=== PATIENT | female | born 1975 | race Caucasian/White ===

== ENCOUNTER 2022-09-17 11:38 | Emergency (ER) | payer BC, SELFPAY ==
[2022-09-17 11:51] VITALS: BP 136/86; PULSE 80; TEMP 36.7; O2SAT 100; BMI 23.1
[2022-09-17 12:34] VITALS: BP 114/78; PULSE 75; RESP 14; O2SAT 99
--- NOTE | 2022-09-17 14:23 | ED_ITS ---
HPI - General Adult General Date Seen: 09/17/22 Chief complaint: Neck Injury/Pain Stated complaint: neck pain Time Seen by Provider: 09/17/22 12:02 Source: patient Mode of arrival: ambulatory Limitations: no limitations History of Present Illness HPI narrative: Patient is a 47-year-old woman who slept wrong about 6 days ago woke up with pain in the right side of her neck. This radiates up into the right side of her scalp and down into the right shoulder. She has gone to the chiropractor a couple of times, he has done manipulation and gave her a soft collar to wear but symptoms have not improved. She went to see him today again but he recommended that she come to the ER instead. She does not have any further radiating pain. Has not had any neurologic symptoms. She says ibuprofen and Tylenol, heat and ice have not been helping. Rotation both to the right and left are limited secondary to pain and spasm. She is finding it difficult to sleep because laying down is uncomfortable. She had to leave work yesterday due to symptoms as well. No trauma. No fevers, night sweats, unexpected weight loss. General health is good. Related Data Previous Rx's Medication Instructions Recorded diazepam 10 mg tablet (Valium) 10 mg PO QHS PRN #7 tabs 09/17/22 Allergies Allergy/AdvReac Type Severity Reaction Status Date / Time doxycycline Allergy Unknown Verified 09/17/22 11:54 Review of Systems Status of ROS: Reports: 10 or more systems reviewed and unremarkable except as noted in History and below [facility] Social History Smoking Status: Heavy tobacco smoker What tobacco products do you use: cigarettes Smoking packs per day: 0.5 Smoking cigarettes per day: 10.0 Do you use any of these nicotine containing products: None Second hand tobacco smoke exposure: No How often do you have a drink containing alcohol: monthly or less AUDIT-C Alcohol total score: 1 Non-prescribed substance use: denies use Exam Narrative: Exam Narrative: Vital signs as noted above. In general, an alert, nontoxic woman, wearing a soft collar. Head: Normocephalic, atraumatic. Eyes: Pupils are equal reactive. Extraocular movements are full. Conjunctivae are normal. ENT: Mucous membranes are moist. Throat is normal. Neck: Supple without lymphadenopathy. No stridor or masses. She has palpable muscle spasm in the paracervical muscles on the right. She has some flexion extension but essentially no rotation to the right or left secondary to pain. She has some tenderness in the rhomboid and trapezius muscles on the right, less so than in the cervical musculature. Heart: Regular rate and rhythm. No murmur or rub. Lungs: Clear bilaterally. No increased work of breathing, crackles or wheezes. Extremities: Well perfused. No edema. No calf tenderness. Pulses intact. Neurologic: Patient is alert and oriented to person and place. Speech is fluent. Face is symmetric. Strength is 5 of 5 in bilateral upper extremities, sensation is intact to light touch. Affect: Normal. Skin: Warm and dry. Well perfused. Const: Vital Signs, click to edit/add: Vital Signs - 24 hr 09/17/22 11:51 09/17/22 12:34 Temperature 98.0 F Pulse Rate [Pulse Oximeter] 80 75 Respiratory Rate 14 Blood Pressure [Ri ght Upper Arm] 136/86 114/78 Pulse Oximetry 100 99 Oxygen Delivery Me thod Room Air Room Air Documenting provider has reviewed patient's vital signs: yes Course Course Hospital Course: Exam and presentation is consistent with torticollis. She does not have any worrisome neurologic symptoms or red flags that suggest she needs imaging today. I do think that ibuprofen, Tylenol, ice and heat are reasonable to continue, although I have suggested that she take ibuprofen and Tylenol together rather than sporadically. I have recommended against the soft collar, I think that limited movement of her neck is actually probably prolonging her symptoms rather than improving them. I am giving her prescription for small number of Valium to take at night. Discussed that while there may be an underlying issue in her neck such as a disc herniation, I do not see anything to suggest that she needs imaging today. If symptoms are not improving in a timely manner, I would recommend primary care follow-up in imaging could be considered at that time. For now, I think symptoms are more likely to be simple muscle spasm. If she develops new neurologic deficits, return for more urgent evaluation Vital Signs Vital signs: Initial Vital Signs Temperature 98.0 F 09/17/22 11:51 Temperature Source Temporal Artery Scan 09/17/22 11:51 Pulse Rate 80 09/17/22 11:51 Blood Pressure 136/86 09/17/22 11:51 Blood Pressure Mean 102 09/17/22 11:51 Blood Pressure Position Sitting 09/17/22 11:51 Pulse Oximetry 100 09/17/22 11:51 Oxygen Delivery Method 09/17/22 11:51 Vital Signs Temperature 98.0 F 09/17/22 11:51 Pulse Rate 80 09/17/22 11:51 Blood Pressure 136/86 09/17/22 11:51 Pulse Oximetry 100 09/17/22 11:51 Oxygen Delivery Method 09/17/22 11:51 Temperature 98.0 F 09/17/22 11:51 Pulse Rate 75 09/17/22 12:34 Respiratory Rate 14 09/17/22 12:34 Blood Pressure 114/78 09/17/22 12:34 Pulse Oximetry 99 09/17/22 12:34 Oxygen Delivery Method 09/17/22 12:34 Discharge Plan Discharge Clinical Impression: Torticollis Patient Disposition: Home, Self-Care Condition: Stable Instructions: Spasmodic Torticollis (ED) Additional Instructions: Ibuprofen 400 mg plus Tylenol 1000 mg 3 times daily with food. Ice and/or heat. Valium at bedtime. Follow-up with primary care if not improving gradually over the next few days, consider imaging in the form of MRI. If you have new symptoms such as fever, weakness, numbness, or other neurologic changes, return to the emergency department. Prescriptions: New diazepam [Valium] 10 mg tablet 10 mg PO QHS PRNQty: 7 0RF Follow Up/Referrals: Sunil Sprague MD [Primary Care Provider] - Stand Alone Forms: [employer] Info Instructions
== END 2022-09-17 12:37 | disposition home or self-care (01) ==
LOC: ED 12:32
PROVIDERS: Emergency Provider Emergency Medicine; PCP Family Medicine
DX: M43.6 Torticollis (principal)
CPT/HCPCS: 99283; 99284

== ENCOUNTER 2022-09-17 23:30 | Emergency (ER) | payer BC, SELFPAY ==
[2022-09-17 23:35] VITALS: BP 136/90; PULSE 91; RESP 16; TEMP 36.8; O2SAT 100; BMI 23.1
[2022-09-18] MEDS: BUPIVACAINE 0.25% 30 ML INJECTION (00:21)
--- NOTE | 2022-09-18 14:50 | ED_ITS ---
HPI - Neck Pain/Injury General Chief Complaint: Neck Injury/Pain Stated Complaint: Severe neck pain Time Seen by Provider: 09/17/22 23:46 History of Present Illness HPI Narrative: 47-year-old woman presenting to the emergency department after being seen earlier today with complaint of severe right decided and regional neck pain. Radiates past shoulder and then intensely into the back of the head. Any movement hurts her neck. Much worse just to lie down and certainly to transition from lying to sitting. No particular injury. This has been going on for 6 days I believe upon waking. Has been treated by a chiropractor but was recommended to be seen in the emergency department after most recent presentation. Was discharged with diagnosis of torticollis, diazepam, ibuprofen and acetaminophen. Has not been able to rest or get control of pain. Had tried a soft collar as prescribed by the chiropractor. Related Data Home Medications Medication Instructions Recorded Confirmed Advil 09/17/22 Previous Rx's Medication Instructions Recorded diazepam 10 mg tablet (Valium) 10 mg PO QHS PRN #7 tabs 09/17/22 Allergies Allergy/AdvReac Type Severity Reaction Status Date / Time doxycycline Allergy Unknown Verified 09/17/22 23:41 Review of Systems Status of ROS: Reports: 6 or more systems reviewed and unremarkable except as noted in History and below PFSH PFS Social History Smoking Status: Current every day smoker What tobacco products do you use: cigarettes Do you use any of these nicotine containing products: None How often do you have a drink containing alcohol: monthly or less AUDIT-C Alcohol total score: 1 Non-prescribed substance use: denies use Exam Narrative: Exam Narrative: Pleasant. Clearly uncomfortable. Does not arrive in a soft collar. She is seated stiffly on the bed staring straight ahead. Able to move all extremities without notable difficulty. She is breathing easily. Skin is warm and dry without rash. Cranial nerves 2-12 to be intact. Has good strength in the upper extremities. No pain to midline palpation of the neck. Visible and palpable spasm of the muscle at the base of the right paracervical and then into the trapezial musculature. Very tense generally and sore to palpation this area. Rotation of the shoulder does not elicit particularly discomfort. Pain exacerbated particularly with attempted rotation of the neck. Const: Vital Signs, click to edit/add: Vital Signs - 24 hr 09/17/22 23:35 Temperature 98.2 F Pulse Rate [Left P ulse Oximeter] 91 Respiratory Rate 16 Blood Pressure [Ri ght Upper Arm] 136/90 H Pulse Oximetry 100 Oxygen Delivery Me thod Room Air Documenting provider has reviewed patient's vital signs: yes Course Vital Signs Vital signs: Initial Vital Signs Temperature 98.2 F 09/17/22 23:35 Temperature Source Temporal Artery Scan 09/17/22 23:35 Pulse Rate 91 09/17/22 23:35 Respiratory Rate 16 09/17/22 23:35 Blood Pressure 136/90 H 09/17/22 23:35 Blood Pressure Mean 105 09/17/22 23:35 Blood Pressure Position Sitting 09/17/22 23:35 Pulse Oximetry 100 09/17/22 23:35 Oxygen Delivery Method 09/17/22 23:35 Vital Signs Temperature 98.2 F 09/17/22 23:35 Pulse Rate 91 09/17/22 23:35 Respiratory Rate 16 09/17/22 23:35 Blood Pressure 136/90 H 09/17/22 23:35 Pulse Oximetry 100 09/17/22 23:35 Oxygen Delivery Method 09/17/22 23:35 Temperature 98.2 F 09/17/22 23:35 Pulse Rate 91 09/17/22 23:35 Respiratory Rate 16 09/17/22 23:35 Blood Pressure 136/90 H 09/17/22 23:35 Pulse Oximetry 100 09/17/22 23:35 Oxygen Delivery Method 09/17/22 23:35 MDM - Neck Pain/Injury MDM Narrative Medical decision making narrative: I would like to try to offer her some immediate relief. We discussed potential benefit of anesthetic in the muscles in the area. Informed consent obtained and decided to proceed with Marcaine injections. Prior to injection cleansed with alcohol and injected 1.5 mL 0.25% bupivacaine fanned in 4 points from mid right- sided paracervical musculature down into the trapezius. Upon reassessment she did develop a nearly 1 cm swelling superior to the uppermost injection. I do not recall it being present prior to the injection. Would presume small h ematoma. After injections though pain was markedly improved throughout the neck though still with posterior headache. She will still need NSAIDs and other treatment. Had improved transition to standing. Discharge Plan Discharge Clinical Impression: Acute torticollis Patient Disposition: Home w/ Parent or Adult Condition: Improved Additional Instructions: I think wearing your soft collar here and there would be okay particularly if it seems to help you relax. Can take up to 800 mg of ibuprofen or up to 1000 mg of acetaminophen per dose. Alternative to the ibuprofen might be up to 500 mg naproxen 2 times daily. Any of these medications can be combined with medications prescribed today but keep in mind that each tablet of Percocet contains 325 mg of acetaminophen. I would take 2 tablets of the Percocet when you get them. Might consider follow-up also with physical therapy. That bump that is on the back of your neck, I would avoid worrying that at this time. Since that is new and possibly related to the injection, I would presume that should be resolved about a week. Percocet and Flexeril from [facility]. Prescriptions: No Action diazepam [Valium] 10 mg tablet 10 mg PO QHS PRNQty: 7 0RF Advil Follow Up/Referrals: Sunil Sprague MD [Primary Care Provider] - Stand Alone [facility] Info Instructions
== END 2022-09-18 01:03 | disposition home or self-care (01) ==
PROVIDERS: Emergency Provider Family Medicine; PCP Family Medicine
DX: M43.6 Torticollis (principal)
CPT/HCPCS: 96372; 99283; 99284; J3490